=== PATIENT | female | born 1965 | race Two or more races ===

== ENCOUNTER 2024-05-23 14:19 | Emergency (ER) | payer OTHER ==
--- NOTE | 2024-05-23 14:30 | ED Physician Documentation ---
PD HPI HEADACHE - Stated complaint Stated Complaint: HUTCHINSON, HEAVY CHEST - History obtained from History obtained from: Patient - History of Present Illness Timing - onset: Today Timing - onset during: Light activity Timing - duration: Hours Timing - details: Gradual onset, Still present Worst headache ever?: No: Worst headache ever? Location: Front, Right Quality: Throbbing, Aching Associated symptoms: Nausea. No: Fever, Stiff neck, Vomiting, Weakness, Numbness Contributing factors: No: Anticoagulated, Trauma Similar symptoms before: Diagnosis (history of migraines intermittently. No current meds Rx for the migraines when they occur. Previous Rx for med for migraines years ago, none current.) Review of Systems Constitutional: denies: Fever, Chills Nose: denies: Rhinorrhea / runny nose, Congestion Throat: denies: Sore throat Cardiac: denies: Pedal edema, Calf pain Respiratory: denies: Cough GI: reports: Nausea. denies: Abdominal Pain PD PAST MEDICAL HISTORY - Past Medical History Past Medical History: Yes Cardiovascular: None Respiratory: None Neuro: Headaches, Migraines Endocrine/Autoimmune: HyPOthyroidism GI: None KAIAKO KURA TUARUA: None : None HEENT: None Psych: None Musculoskeletal: None Derm: None - Past Surgical History Past Surgical History: Yes /KAIAKO KURA TUARUA: section HEENT: Tonsil/Adenoidectomy - Present Medications Home Medications: Ambulatory Orders Medication Instructions Recorded Confirmed Ondansetron Odt [Zofran] 4 mg TL Q6H PRN #10 tablet 05/23/24 Rizatriptan Benzoate [Rizatriptan] 5 mg PO Q8H PRN #6 tablet 05/23/24 - Allergies Allergies/Adverse Reactions: Allergies Allergy/AdvReac Type Severity Reaction Status Date / Time Sulfa (Sulfonamide Allergy Rash Verified 05/23/24 14:24 Antibiotics) sulfamethoxazole Allergy Rash Verified 05/23/24 14:24 [From ] trimethoprim [From ] Allergy Rash Verified 05/23/24 14:24 - Social History Does the pt smoke?: No Smoking Status: Never smoker Does the pt drink ETOH?: No Does the pt have substance abuse?: No - Immunizations Immunizations are current?: Yes - POLST Patient has POLST: No PD ED PE NORMAL - Vitals Vital signs reviewed: Yes - General General: Alert and oriented X 3, Well developed/nourished, Other (appears uncomfortable, bhumika with lights on, and holding head. ) - HEENT HEENT: Atraumatic, Pharynx benign - Neck Neck: Supple, no meningeal sign, No adenopathy - Cardiac Cardiac: RRR, No murmur - Respiratory Respiratory: No respiratory distress, Clear bilaterally - Abdomen Abdomen: Soft, Non tender - Derm Derm: Normal color, Warm and dry - Extremities Extremities: No edema, No calf tenderness / cord Results - Vitals Vitals: Vital Signs - 24 hr 05/23/24 16:30 Heart Rate 65 Respiratory 18 Rate Blood Pressure 119/75 O2 Saturation 100 Oxygen O2 Source Room air - EKG (time done) 15:15 EKG releavant findings:: EKG personally interpreted by author of this note. Relevant findings are: Rate: Rate (enter#) (57) Rhythm: NSR [place]: Normal Intervals: Normal [place] QRS: Normal Ischemia: Normal ST segments. No: ST elevation c/w ischemia, ST depression - Labs Labs: Laboratory Tests 05/23/24 05/23/24 14:51 14:51 Sodium 139 Potassium 3.7 Chloride 107 Carbon Dioxide 24 Anion Gap 8.0 BUN 20 Creatinine 0.5 L Estimated GFR (MDRD) 127 Glucose 103 Calcium 9.7 Magnesium 1.8 Total Bilirubin 0.4 AST 20 ALT 16 Alkaline Phosphatase 73 Troponin I High Sens < 2.3 L Total Protein 7.2 Albumin 4.4 Globulin 2.8 Albumin/Globulin Ratio 1.6 Lipase 28 PD Medical Decision Making - ED course Complexity details: re-evaluated patient (much improved with headache essentially gone after meds, and she feels well. No chest discomfort. Smiling and would like to go home. ), considered differential, d/w patient, d/w family (daughter helping with occasional translation, otherwise mainly direct from pt. ) ED course: 58-year-old with history of migraines recurrently since her teens or 20s. She gets them infrequently but still common enough. Previously prescribed medication to take when needed. Does not currently have any med like that. She is visiting from [place] for her children here on would be. Denies any head injury, focal weakness, fever or chills. The headache is severe when they do occur. She does describe some light sensitivity nausea and headache. She has been having some frontal pressure with some mild nasal drainage but no flu fevers or stiff neck type symptoms. She does describe some chest fullness or pressure with the symptoms today. Departure - Departure Disposition: 01 Home, Self Care Clinical Impression: Chest discomfort, Migraine headache Condition: Stable Record reviewed to determine appropriate education?: Yes Instructions: ED Headache Migraine Prescriptions: Rizatriptan Benzoate [Rizatriptan] 5 mg PO Q8H PRN #6 tablet PRN Reason: Migraine Ondansetron Odt [Zofran] 4 mg TL Q6H PRN #10 tablet PRN Reason: Nausea / Vomiting Comments: Your EKG and blood test looking at heart injury called troponin were both normal. I am not sure the chest pressure and discomfort you had but there is no signs of it being heart related. Regarding your migraine headache, for subsequent ones you can use a combination of rizatriptan along with dancer Joy for nausea and also Tylenol or ibuprofen in there as well. See if this combination (which includes of migraine specific medicine, that rizatriptan) is able to effectively reduce or stop the migraine. Follow-up with your primary care and back home regarding further medication or such. I sent your prescriptions to the [facility]. They will be open tomorrow or should be. Forms: PCP List Discharge Date/Time: 05/23/24 17:10
[2024-05-23 14:33] VITALS: O2SAT 100
[2024-05-23 15:10] LABS: ALBUMIN 4.4 g/dL (3.2-5.5); ALBUMIN/GLOBULIN RATIO 1.6 (1.0-2.2); BILIRUBIN,TOTAL 0.4 mg/dL (0.2-1.0); CALCIUM 9.7 mg/dL (8.5-10.3); CREATININE 0.5 mg/dL (0.6-1.3); MAGNESIUM 1.8 mg/dL (1.7-2.3); POTASSIUM 3.7 mmol/L (3.5-4.5); TOTAL PROTEIN 7.2 g/dL (6.4-8.9)
[2024-05-23] MEDS: diphenhydrAMINE INJ 50 MG/ML VIAL IVP STA (15:25)
[2024-05-23] MEDS: KETOROLAC 15 MG/ML VIAL IVP STA (15:25)
[2024-05-23] MEDS: PROCHLORPERAZINE 10 MG/2 ML VIAL IVP STA ×2 (15:26→16:18)
[2024-05-23] MEDS: SODIUM CHLORIDE 0.9% 1,000 ML IV STA (15:28)
[2024-05-23] MEDS: HYDROmorphone 0.5 MG/0.5 ML SYRINGE IVP STA (16:48)
[2024-05-23 17:22] VITALS: BP 119/75
== END 2024-05-23 17:10 | disposition home or self-care (01) ==
LOC: ED 14:19
DX: G43.909 Migraine, unspecified, not intractable, without status migrainosus (principal); R07.89 Other chest pain; E03.9 Hypothyroidism, unspecified; Z79.899 Other long term (current) drug therapy
CPT/HCPCS: 36415; 80053; 83690; 83735; 84484; 93005; 96374; 96375; 99283; 99284; J1200